=== PATIENT | male | born 1980 | race African-American/Black ===

== ENCOUNTER 2017-01-20 11:38 | Emergency (ER) | payer OTHER ==
[~2017-01-20] VITALS: Ht 175.3 cm; Wt 63.5 kg
[~2017-01-20 11:38] MED LIST: BENADRYL50 MG ORAL; DILAUDID2 MG ORAL; FOLIC ACID1 MG ORAL; OXYCONTIN40 M1 ORAL; TEMAZEPAM30 MG ORAL; VITAMIN B122500 MCG PO; VITAMIN D400 UNI2 PO; XANAX2 MG ORAL
[2017-01-20 11:45] VITALS: BP 161/112
[2017-01-20] MEDS ORDERED: HYDROmorphone 2 MG, DiphenhydrAMINE 25 MG in NS 55 ML IVPB ONE (11:45)
[2017-01-20] MEDS ORDERED: DiphenhydrAMINE 50mg/ml Inj ONE ×2 (11:49→15:43)
[2017-01-20] MEDS ORDERED: NS 55ml IV ONE (12:15)
[2017-01-20 12:26] LABS: MEAN CORPUSCULAR HEMOGLOBIN 35.6 PG (27.0-31.0); MEAN CORPUSCULAR HGB CONC 34.7 G/DL (32.0-36.0); MEAN CORPUSCULAR VOLUME 103 FL (80-99); MEAN PLATELET VOLUME 7.2 FL (6.5-10.1); PLATELET COUNT 335 K/UL (150-450); RED BLOOD COUNT 2.27 M/UL (4.70-6.10); RED CELL DISTRIBUTION WIDTH 19.7 % (11.6-14.8); WHITE BLOOD COUNT 19.4 K/UL (4.8-10.8)
[2017-01-20 13:08] LABS: ANION GAP 18 (5-15); CALCIUM 9.3 mg/dL (8.6-10.2); CARBON DIOXIDE 22 mEQ/L (20-30); CHLORIDE 105 mEQ/L (98-107); CREATININE 0.8 mg/dL (0.7-1.2); GLOMERULAR FILTRATION RATE > 60 mL/min (>60); HEMOLYSIS 11; POTASSIUM 3.8 mEQ/L (3.4-4.9); SODIUM 145 mEQ/L (135-145)
[2017-01-20 13:35] LABS: RETICULOCYTE COUNT 9.8 % (0.0-2.0)
[2017-01-20 13:39] LABS: ANISOCYTOSIS 2+; BAND NEUTROPHILS % (MANUAL) 0 % (0-8); BASOPHILS % (MANUAL) 1 % (0-2); EOSINOPHILS % (MANUAL) 9 % (0-3); HYPOCHROMASIA 3+; LYMPHOCYTES % (MANUAL) 26 % (20-45); MACROCYTES 1+; NEUTROPHILS % (MANUAL) 55 % (45-75); PLATELET ESTIMATE ADEQUATE; SPHEROCYTES 2+; TOTAL CELLS COUNTED 100
[2017-01-20 13:41] LABS: POIKILOCYTOSIS 2+; POLYCHROMASIA 2+; SCHISTOCYTES 1+; SICKLE CELLS 1+
[2017-01-20 13:44] LABS: PLATELET MORPHOLOGY NORMAL
--- NOTE | 2017-01-20 14:00 | Emergency Room Report ---
History of Present Illness General Chief Complaint: General Complaint Source: Patient, Medical Record Present Illness HPI Patient presents in acute pain Essentially writhing around the gurney complains that he has pain diffusely in the back of her shoulder bilateral leg area Patient somewhat histrionic upon initial arrival Denies any shortness of breath he reports that he was doing fairly well with his sickle cell crisis however over the past 2 days has been worsening Patient was not able to be seen by his heme oncologist And presents to the ER by paramedics Complains of increased nausea denies vomiting Denies any recent travel or trauma Allergies: Coded Allergies: KETOROLAC (Unverified Allergy, Unknown, 09/30/14) NAPROXEN (Unverified Allergy, Unknown, 04/18/15) Uncoded Allergies: NEOSPORIN (Allergy, Unknown, 10/04/16) Patient History Past Medical History: see triage record Pertinent Family History: none Reviewed Nursing Documentation: PMH: Agreed, PSxH: Agreed Nursing Documentation-PMH Hx Cardiac Problems: Yes Hx Asthma: Yes Hx COPD: Yes - Asthma Hx Cancer: No Hx Gastrointestinal Problems: No Hx Cerebrovascular Accident: Yes Review of Systems All Other Systems: negative except mentioned in HPI Physical Exam Vital Signs Date Time Temp Pulse Resp B/P Pulse Ox O2 Delivery O2 Flow Rate FiO2 01/20/17 11:32 98.2 100 20 161/112 98 Room Air Sp02 EP Interpretation: reviewed, normal General Appearance: moderate distress - writhing around in [facility] Head: normocephalic, atraumatic Eyes: bilateral eye EOMI, bilateral eye PERRL ENT: hearing grossly normal, TMs + canals normal, uvula midline, dry mucus membranes Neck: full range of motion, supple, no meningismus, no bony tend Respiratory: lungs clear, normal breath sounds, no rhonchi, no respiratory distress, no retraction, no accessory muscle use Cardiovascular #1: normal peripheral pulses, regular rate, rhythm, no edema, no gallop, no JVD, no murmur Gastrointestinal: normal bowel sounds, non tender, soft, no mass, no organomegaly, non-distended, no guarding, no hernia, no pulsatile mass, no rebound Musculoskeletal: normal inspection Neurologic: oriented x3, responsive, electrician's helper III-XII nml as tested, motor strength/ tone normal, sensory intact Psychiatric: mood/affect normal Skin: no rash, warm/dry, palpation normal Lymphatic: normal inspection, no adenopathy Medical Decision Making Diagnostic Impression: Primary Impression: Sickle cell crisis ER Course Patient is a fairly complex patient with multiple differential to consideration including but not limited to cardiac cardiopulmonary and vascular emergencies Patient's reticulocyte count is significantly elevated Patient provided further hydration pain medication and at this point requires inpatient care Labs Test 01/20/17 12:11 White Blood Count 19.4 K/UL (4.8-10.8) Red Blood Count 2.27 M/UL (4.70-6.10) Hemoglobin 8.1 G/DL (14.2-18.0) Hematocrit 23.3 % (42.0-52.0) Mean Corpuscular Volume 103 FL (80-99) Mean Corpuscular Hemoglobin 35.6 PG (27.0-31.0) Mean Corpuscular Hemoglobin Concent 34.7 G/DL (32.0-36.0) Red Cell Distribution Width 19.7 % (11.6-14.8) Platelet Count 335 K/UL (150-450) Mean Platelet Volume 7.2 FL (6.5-10.1) Neutrophils (%) (Auto) % (45.0-75.0) Lymphocytes (%) (Auto) % (20.0-45.0) Monocytes (%) (Auto) % (1.0-10.0) Eosinophils (%) (Auto) % (0.0-3.0) Basophils (%) (Auto) % (0.0-2.0) Differential Total Cells Counted 100 Neutrophils % (Manual) 55 % (45-75) Lymphocytes % (Manual) 26 % (20-45) Monocytes % (Manual) 9 % (1-10) Eosinophils % (Manual) 9 % (0-3) Basophils % (Manual) 1 % (0-2) Band Neutrophils 0 % (0-8) Platelet Estimate Adequate Platelet Morphology Normal Polychromasia 2+ Hypochromasia 3+ Poikilocytosis 2+ Anisocytosis 2+ Macrocytosis 1+ Spherocytes 2+ Sickle Cells 1+ Schistocytes 1+ Reticulocyte Count 9.8 % (0.0-2.0) Sodium Level 145 mEQ/L (135-145) Potassium Level 3.8 mEQ/L (3.4-4.9) Chloride Level 105 mEQ/L (98-107) Carbon Dioxide Level 22 mEQ/L (20-30) Anion Gap 18 (5-15) Blood Urea Nitrogen 9 mg/dL (7-23) Creatinine 0.8 mg/dL (0.7-1.2) Estimat Glomerular Filtration Rate > 60 mL/min (>60) Glucose Level 99 mg/dL (74-106) Calcium Level 9.3 mg/dL (8.6-10.2) Last Vital Signs Date Time Temp Pulse Resp B/P Pulse Ox O2 Delivery O2 Flow Rate FiO2 01/20/17 13:05 98.2 01/20/17 11:45 20 161/112 98 Room Air 01/20/17 11:32 100 Status: improved Disposition: XFER SHT-TRM HOSP Condition: Serious Referrals: NON PHYSICIAN (PCP) CHRIS SMALL D.O. Jan 20, 2017 14:00
[2017-01-20 14:01] VITALS: BP 138/75
[2017-01-20] MEDS ORDERED: HYDROmorphone 1mg/ml Carpuject ONE (15:43)
[2017-01-20] MEDS ORDERED: HYDROmorphone 1 MG, DiphenhydrAMINE 25 MG in NS 55 ML IVPB ONE (15:45)
[2017-01-20 16:10] VITALS: BP 126/65
== END 2017-01-20 16:20 | disposition short-term general hospital (02) ==
LOC: EDBD 11:38 → EMR 12:14
DX: D57.00 Hb-SS disease with crisis, unspecified (principal); J45.909 Unspecified asthma, uncomplicated; J44.9 Chronic obstructive pulmonary disease, unspecified; Z86.73 Personal history of transient ischemic attack (TIA), and cerebral infarction without residual deficits; Z88.8 Allergy status to other drugs, medicaments and biological substances; Z88.1 Allergy status to other antibiotic agents
CPT/HCPCS: 36415; 80048; 85007; 85025; 85044; 96360; 96361; 96374; 96375; 99285; J1170; J1200